=== PATIENT | female | born 1995 | race Caucasian/White ===

== ENCOUNTER 2019-07-24 16:45 | Emergency (ER) | payer SELFPAY ==
[2019-07-24 16:56] VITALS: BMI 21.4
--- NOTE | 2019-07-24 19:00 | PDOC ---
History of Present Illness - General Chief Complaint: Weakness Stated Complaint: weakness Time Seen by Provider: 07/24/19 18:20 - History of Present Illness Initial Comments: Indu Puga is an otherwise healthy 24yo woman who presents following an episode of near-syncope at work today. 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 Her boss told her that she looked very pale and gave her some juice. She felt better after drinking the juice, but her boss called EMS to bring her to the hospital. She did not actually lose consciousness and did not fall. Ms Caldera says that she had a similar episode several years ago when she got her period; she notes that her period also started today. She does report heavy and prolonged bleeding with her periods up to 2 weeks but does not know if she has ever been checked for anemia. The pt also reports that from Friday- of this week she was sick, with fevers to 104F on Friday as well as body aches and malaise. She took an OTC medication for the fever, and her symptoms and fever have since resolved. She was feeling well afternoon and yesterday. She denies any drug or alcohol use, recent vomiting, diarrhea, or any chest pain, SOB, or neurological symptoms prior to the syncopal episode. Past History - Past Medical History Allergies/Adverse Reactions: Allergies Allergy/AdvReac Type Severity Reaction Status Date / Time No Known Allergies Allergy Verified 07/24/19 16:57 Home Medications: Ambulatory Orders NK [No Known Home Medication] 07/24/19 COPD: No - Psycho Social/Smoking Cessation Hx Smoking History: Unknown if ever smoked Have you smoked in the past 12 months: No Information on smoking cessation initiated: No Hx Alcohol Use: No Drug/Substance Use Hx: No Review of Systems - Review of Systems Comments:: General: + recent fevers (resolved), no chills, no weight or appetite change, no malaise HEENT: No changes in vision, no changes in hearing, no congestion, no sore throat CV: No chest pain, no palpitations, no LE edema Pulm: No SOB, no cough, no wheezing GI: + nausea, no vomiting, no change in bowel habits, no melena : No frequency, no urgency, no dysuria Musc: No back pain, no joint swelling, no recent injury Skin: No rash, no lesions, no erythema Endo: No excessive thirst, no heat/cold intolerance Heme: No unusual bruising or bleeding, no swollen glands Neuro: No numbness/tingling, no focal weakness. See HPI Vasc: No claudication Psych: No recent change in mood, no SI or HI *Physical Exam - Vital Signs Last Vital Signs Temp Pulse Resp BP Pulse Ox 97.5 F L 64 16 106/63 100 07/24/19 16:53 07/24/19 16:53 07/24/19 16:53 07/24/19 16:53 07/24/19 17:40 - Physical Exam General: Comfortable, no acute distress HEENT: Atraumatic, PERRL, EOMI, MMM, voice normal, normal neck ROM Cards: RRR, no murmur appreciated Pulm: Comfortable on room air, clear to auscultation bilaterally Abd: Soft, nontender, nondistended Ext: Atraumatic. No LE edema. ROM intact. Strength 5/5 and equal bilaterally Vasc: Extremities WWP. Skin: Normal color, no rashes or lesions Neuro: A&Ox3, CN grossly intact, normal speech, motor/sensory grossly intact and symmetric. No focal deficits Psych: Mood appropriate to situation ED Treatment Course - LABORATORY CBC & Chemistry Diagram: 07/24/19 18:50 07/24/19 18:50 Medical Decision Making - Medical Decision Making 07/24/19 19:00 Indu Puga is an otherwise healthy 24yo woman who presents following an episode of near-syncope at work today with associated hot flushing , sweating, and nausea. She reports a febrile illness with temperature to 104F over the past week, now resolved. - Pre-syncope may be vasovagal, orthostatic secondary to dehydration, arrhythmia , . Dehydration likely given recent febrile illness - EKG completed in triage, need to review - CBC, CMP, UA, Urine preg - 1L IVF 07/24/19 20:04 - Labs reviewed. No anemia, no leukocytosis, no electrolyte abnormalities - Pt feeling improved, now feels hungry - UA sent - Will most likely d/c home with PMD follow up when UA resulted 07/24/19 20:32 - UA unremarkable. Preg negative - EKG w/ NSR, HR 64, normal axis, normal intervals, no ST changes - Endorsed to Dr Del Valle that the syncope occurred right after a severe menstrual pain. Per brief review of literature online, this can cause vasovagal reactions. Given benign workup and h/o previous episode with the same circumstances, this is most likely what occurred. - Will d/c home to follow up with her PMD Discussed with Dr Eligio Askew PGY2 Discharge - Discharge Information Problems reviewed: Yes Clinical Impression/Diagnosis: Pre-syncope Condition: Stable Disposition: HOME - Admission No - Follow up/Referral Referrals: Guillermo Schwartz MD [Primary Care Provider] - [facility] [Provider Group] - Patient Discharge Instructions Patient Printed Discharge Instructions: DI for Syncope in Adults (Fainting) Additional Instructions: Discharge Instructions: You were seen in the emergency department after almost fainting. Your blood tests, EKG and urine test were normal. Home Care: - Make sure you are drinking plenty of fluids, especially if you have a viral illness (cold) or fever - For fever over 101F or pain, you may take acetaminophen (Tylenol) 650-1000mg or ibuprofen (Advil, Motrin) 400-600mg every 6-8 hours. These may be alternated every 3-4 hours if needed for continued pain or fever - Do not combine Tylenol or Advil with other medicines (eg Nyquil or Theraflu) that may also contain acetaminophen or ibuprofen. - Make an appointment to see your primary doctor within the next week for follow up. - You have been given contact information (per request) for the [facility]. Call to make an appointment as needed. - Seek immediate care for worsening symptoms, additional episodes of fainting, falls or head injury, or any other medical emergency. - Post Discharge Activity
[2019-07-24] MEDS ORDERED: SODIUM CHLORIDE 0.9% 500 ML INFUS.BAG IV ONE (19:07)
[2019-07-24 19:21] LABS: BASO % 0.1 % (0-2.0); HEMATOCRIT 34.6 % (32.4-45.2); HEMOGLOBIN 11.5 GM/dL (10.7-15.3); LYMPH % 11.3 % (8-40); MCH 29.1 pg (25.7-33.7); MCHC 33.3 g/dl (32.0-36.0); MEAN CELL VOLUME 87.5 fl (80-96); MEAN PLT VOLUME 9.4 fl (7.5-11.1); MONO % 6.1 % (3.8-10.2); NEUT % 82.5 % (42.8-82.8); PLATELET COUNT 174 K/MM3 (134-434); RBC 3.96 M/mm3 (3.60-5.2); RDW 12.9 % (11.6-15.6); WHITE BLOOD COUNT 9.7 K/mm3 (4.0-10.0)
[2019-07-24 19:49] LABS: ALBUMIN 3.7 g/dl (3.4-5.0); BILIRUBIN,TOTAL 0.3 mg/dL (0.2-1); BLOOD UREA NITROGEN 16.8 mg/dL (7-18); CALCIUM 8.3 mg/dL (8.5-10.1); CREATININE 0.5 mg/dL (0.55-1.3); POTASSIUM 4.2 mmol/L (3.5-5.1)
[2019-07-24 20:12] LABS: HYALINE CASTS 3 /lpf (0-8); URINE APPEARANCE CLEAR; URINE BACTERIA 2.2 /hpf (NEGATIVE); URINE BILIRUBIN NEGATIVE (NEGATIVE); URINE COLOR YELLOW; URINE GLUCOSE (UA) NEGATIVE (NEGATIVE); URINE KETONE 2+ (NEGATIVE); URINE LEUK ESTERASE NEGATIVE (NEGATIVE); URINE NITRITE NEGATIVE (NEGATIVE); URINE PROTEIN TRACE (NEGATIVE); URINE RBC 17 /hpf (0-4); URINE UROBILINOGEN 0.2 mg/dL (0.2-1.0); URINE WBC 1 /hpf (0-5)
[2019-07-24 21:01] VITALS: BP 102/54; PULSE 66; TEMP 98.1
--- NOTE | 2019-07-24 21:06 | PDOC ---
Attending Attestation - Resident Resident Name: Michelle Askew - ED Attending Attestation I have performed the following: I have examined & evaluated the patient, The case was reviewed & discussed with the resident, I agree w/resident's findings & plan - HPI HPI: 07/24/19 21:03 Pt comes with vasovagal episode after she felt her usual sharp shooting pain of menstrual cramps; states that she usually gets bad pain. Today she had little to eat and drink. 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 Bakery was not excessively hot. Pt has no fevers or sweats and no PMHx. - Physicial Exam PE: 07/24/19 21:05 Normal exam Normal heart rate and sounds. Lungs clear. No flank pain and no abd pain Pt is hungry and she wants to eat. - Medical Decision Making 07/24/19 21:06 Labs and EKG normal. Exam normal No need for further workup. Pt will follow up as needed with her [employer] 07/24/19 21:07 Ketones in urine; pt was hydrated and she feels better
--- NOTE | 2019-07-26 01:02 | EKG ---
Test Reason : Blood Pressure : / mmHG Vent. Rate : 064 BPM Atrial Rate : 064 BPM P-R Int : 160 ms QRS Dur : 094 ms QT Int : 430 ms P-R-T Axes : 051 038 045 degrees QTc Int : 443 ms NORMAL SINUS RHYTHM NORMAL ECG NO PREVIOUS ECGS AVAILABLE Confirmed by VERONIKA AGUILAR MD ([id number]) on 07/26/2019 1:02:19 AM Referred By: Confirmed By:VERONIKA AGUILAR MD
== END 2019-07-24 21:02 | disposition home or self-care (01) ==
LOC: SUPCPDRO 16:45 → JER 16:45
PROC: 3E0337Z Introduction of Electrolytic and Water Balance Substance into Peripheral Vein, Percutaneous Approach (ICD-10-PCS; principal; 2019-07-24)
DX: R55 Syncope and collapse (principal)
CPT/HCPCS: 36415; 80053; 81003; 84703; 85025; 93005; 93010; 99284-25